=== PATIENT | female | born 1955 | race Caucasian/White ===

== ENCOUNTER 2020-12-29 04:25 | Inpatient (IN) | payer OTHER ==
[2020-12-29] MEDS ORDERED: HEPARIN SODIUM 1,000 UN/ML (10ML VL) IV PRN (05:50)
[2020-12-29] MEDS ORDERED: NALOXONE 0.4 MG/ML 1 ML VIAL IV PRN (05:51)
[2020-12-29] MEDS ORDERED: MORPHINE SULFATE 4 MG/ML SYRINGE IV PRN (05:51)
[2020-12-29] MEDS ORDERED: ACETAMINOPHEN TAB 325 MG TAB PO PRN (05:51)
[2020-12-29] MEDS ORDERED: ALBUTEROL NEBULIZED 2.5 MG/3 ML INHALATION PRN (06:03)
--- NOTE | 2020-12-29 06:03 | ED ---
General Adult HPI - General Chief complaint: Chest Pain Stated complaint: A-Fib, SOB Time Seen by Provider: 12/29/20 04:27 Source: patient, EMS Mode of arrival: EMS - History of Present Illness Initial comments: Patient is 65-year-old woman who arrives here as a transfer from [facility]. The patient states she had gone there this evening to be evaluated for increasing shortness of breath. The patient states that she does have history of asthma. Patient had seen her physician Dr Bolivar, and had been placed on a dose pack which ended the previous day. She stated that she had some initial improvement but then when the dose pack and it she was not feeling well again. When she was evaluated at the other facility she is found to be in atrial fibrillation with rapid ventricular rate. Patient also found to have segmental branch pulmonary embolism with CTA was performed. She was started on IV heparin as well as Cardizem and transferred here for further treatment. When I interview the patient, she states her breathing is doing better than it was. She is not having chest pain. Patient does note bilateral leg edema. -: days(s) Consistency: constant Improves with: none Worsens with: none Associated Symptoms: shortness of breath Treatments Prior to Arrival: none - Related Data Allergies Allergy/AdvReac Type Severity Reaction Status Date / Time No Known Allergies Allergy Verified 12/29/20 06:02 Review of Systems ROS Statement: Those systems with pertinent positive or pertinent negative responses have been documented in the HPI. ROS Other: All systems not noted in ROS Statement are negative. Constitutional: Denies: fever Respiratory: Reports: cough, dyspnea. Denies: wheezes, hemoptysis Cardiovascular: Reports: palpitations, edema. Denies: syncope Gastrointestinal: Denies: abdominal pain, vomiting, diarrhea Genitourinary: Denies: dysuria, hematuria Musculoskeletal: Denies: back pain Skin: Denies: rash Neurological: Denies: headache, weakness Past Medical History Past Medical History: Atrial Fibrillation, Asthma, Rheumatoid Arthritis (RA) Past Surgical History: Cholecystectomy, Hysterectomy, Joint Replacement Past Psychological History: Depression Smoking Status: Former smoker Past Alcohol Use History: Occasional General Exam General appearance: alert, in no apparent distress Head exam: Present: atraumatic, normocephalic Eye exam: Present: normal appearance. Absent: scleral icterus, conjunctival injection Respiratory exam: Present: wheezes, rales (I lateral bases). Absent: respiratory distress, rhonchi, stridor Cardiovascular Exam: Present: regular rate, irregular rhythm, normal heart sounds. Absent: systolic murmur, diastolic murmur, rubs, gallop GI/Abdominal exam: Present: soft. Absent: distended, tenderness, guarding, rebound, rigid, mass Extremities exam: Present: normal capillary refill, pedal edema. Absent: calf tenderness Back exam: Present: normal inspection. Absent: CVA tenderness (R), CVA tenderness (L) Neurological exam: Present: alert Skin exam: Present: warm, dry, intact, erythema, other (There are some chronic stasis changes as well as erythema.). Absent: rash Course Vital Signs 12/29/20 12/29/20 04:28 06:38 Temperature 97.6 F Pulse Rate 79 112 H Respiratory 20 20 Rate Blood Pressure 126/90 124/88 O2 Sat by Pulse 95 95 Oximetry Medical Decision Making - Medical Decision Making Patient is 65-year-old woman transferred here to be treated for acute pulmonary embolism as well as atrial fibrillation with rapid ventricular rate.. The patient is now rate controlled. Heparin continued patient on oral Cardizem for rate control Patient also appears to have cellulitis and started antibiotics here Disposition Clinical Impression: Acute pulmonary embolism, Atrial fibrillation, COPD exacerbation, Cellulitis Disposition: ADMITTED IP TO THIS HOSP Condition: Serious
[2020-12-29] MEDS: HEPARIN SOD,PORK IN 0.45% NACL 25,000 UNIT in 0.45% NACL 1 250ML.BAG IV SCH ×2 (06:34→19:28)
[2020-12-29] MEDS: SODIUM CHLORIDE 0.9% 1,000 ML IV SCH ×2 (06:36→19:47)
[2020-12-29] MEDS ORDERED: NAFCILLIN 2 GM in DEXTROSE 5% IN WATER 100 ML IVPB SCH ×2 (08:00)
[2020-12-29] MEDS: DILTIAZEM ORAL 30 MG TAB PO SCH ×3 (08:07→22:54)
[2020-12-29] MEDS: buPROPion XL 300 MG TAB.ER.24H PO SCH (08:07)
[2020-12-29] MEDS: FAMOTIDINE 20 MG TAB PO SCH ×2 (08:09→19:47)
[2020-12-29] MEDS: LOSARTAN 25 MG TAB PO SCH (08:12)
[2020-12-29] MEDS: MONTELUKAST 10 MG TAB PO SCH (08:12)
[2020-12-29] MEDS: PANTOPRAZOLE 40 MG TABLET PO SCH (08:13)
[2020-12-29] MEDS ORDERED: IPRATROPIUM-ALBUTEROL 3 ML NEB INHALATION PRN (15:52)
[2020-12-29] MEDS ORDERED: ALPRAZolam 0.25 MG TAB PO PRN (15:52)
--- NOTE | 2020-12-29 16:10 | XR ---
EXAMINATION TYPE: XR chest 1V portable DATE OF EXAM: 12/29/2020 COMPARISON: NONE HISTORY: Pneumonia TECHNIQUE: Single view FINDINGS: There is no heart failure nor confluent pneumonic infiltrate. Costophrenic angles are clear . There is some coarsening of interstitial markings. Heart size is fairly normal. There are chest manoj ds. IMPRESSION: Mild increased markings could relate to some prominent fibrosis. Normal heart.
[2020-12-29] MEDS: BUDESONIDE 1 MG/2 ML NEBU INHALATION SCH ×2 (16:35→20:22)
[2020-12-29] MEDS: FORMOTEROL FUMARATE 20 MCG/2 ML NEBU INHALATION SCH ×2 (16:36→20:22)
[2020-12-29] MEDS: IPRATROPIUM-ALBUTEROL 3 ML NEB INHALATION SCH ×2 (16:48→20:22)
--- NOTE | 2020-12-29 17:48 | HP ---
HISTORY AND PHYSICAL DATE OF SERVICE: 12/29/2020. CHIEF COMPLAINTS: Pulmonary embolism. HISTORY OF PRESENT ILLNESS: This 65-year-old woman with a past medical history of multiple medical problems, including history of atrial fibrillation, history of asthma and rheumatoid arthritis, history of hysterectomy, cholecystectomy, being followed by a primary physician in the outpatient setting [facility], was not feeling well. The patient had cough and sputum for the last couple days and the patient is and the patient is concerned about Covid and the patient went to [facility] for Covid testing and CT scan showed some subsegmental pulmonary embolism and the patient was subsequently transferred to [place] for further evaluation and treatment. The patient also had atrial fibrillation with fast ventricular rate. The patient is started on Cardizem. Cardiology evaluation in progress. There is no history of fever, rigors, chills at this time. Covid 19 test was negative, but however, the patient has taken two doses plus the booster rheumatoid arthritis. The patient also had bilateral leg swelling and some skin lesion on the left lower part also. There is no history of fever, rigors. No history of any headache, loss of consciousness or seizures. No history of contact with Covid 19 at this time. PAST MEDICAL HISTORY: History of atrial fibrillation, asthma, rheumatoid arthritis, cholecystectomy, hysterectomy. MEDICATIONS: Prior to admission home medications are: Valtrex, Wellbutrin, demadex, potassium gluconate, Protonix, Bystolic, Singulair, Resvu, Cozaar, Motrin, folic acid, Flovent, Ventolin. Doses reviewed. ALLERGIES: None. FAMILY HISTORY: No history of heart disease or strokes in the family. SOCIAL HISTORY: Previous history of smoking. Otherwise, no history of alcohol intake. REVIEW OF SYSTEMS: ENT: No diminished vision. No diminished hearing. CARDIOVASCULAR: As mentioned earlier. RESPIRATORY: As mentioned earlier. GI: No nausea or vomiting. : No dysuria. NERVOUS SYSTEM: No numbness or weakness. ALLERGY/IMMUNOLOGY: As mentioned earlier. History of asthma. HEMATOLOGY/ONCOLOGY: No history of any anemia. ENDOCRINE: No history of diabetes or hypothyroidism. CONSTITUTIONAL: As mentioned earlier. DERMATOLOGY as mentioned earlier. RHEUMATOLOGY: Rheumatoid arthritis PSYCHIATRIC: As mentioned earlier, depression. PHYSICAL EXAMINATION: Patient is alert, oriented x3. Pulse is 112, irregular, blood pressure 124/80, respiration 20, temperature 97.2, pulse ox 94% on 2 L. HEENT: Conjunctivae normal. Oral mucosa moist. NECK is no JVD. No carotid bruit. No lymph node enlargement. CARDIOVASCULAR: S1, S2 muffled. No S3, no S4. RESPIRATORY: Breath sounds diminished in the bases. Scattered rhonchi and crackles. Expiratory wheezing also present. ABDOMEN: Soft, obese, nontender. No mass palpable. LEGS: No edema, no swelling. NERVOUS SYSTEM: Higher functions as mentioned earlier. Moves all 4 limbs. No focal motor or sensory deficits. LYMPHATICS: No lymph nodes palpable in the neck, axillae, groin. JOINTS: No active deforming arthropathy. SKIN: Some erythema present on the left lower part. LAB: APTT 77, troponin less than 0.012. ASSESSMENT: 1. Acute bronchial asthma, acute exacerbation, acute purulent tracheobronchitis. 2. Acute bilateral pulmonary embolism. 3. History of atrial fibrillation with fast ventricular rate. 4. History of rheumatoid arthritis. 5. History of cholecystectomy. 6. History of hysterectomy. 7. History of depression. 8. Remote history of nicotine dependence. 9. Obesity, body mass of 39.6. 10.FULL CODE. RECOMMENDATIONS AND DISCUSSION: This 65-year-old woman who presented with multiple complex medical issues, we will monitor the patient closely. Continue the current medications, management and symptomatic treatment. Continue with IV heparin. Otherwise, recommend Pulmonary and Hematology/Oncology consultations. Otherwise continue the rest of medications. Home medications. Covid 19 testing was negative, but I would recommend PCR testing also. Otherwise the chest x-ray and continue to monitor. Guarded prognosis because of multiple complex medical issues. Further recommendations to follow. MMODL / IJN: [id number] / ARMANDO
[2020-12-29 19:01] LABS: C Reactive Protein 4.5 mg/dL (<1.0)
[2020-12-29 19:04] LABS: Partial Thromboplastin Time 92.4 sec (22.0-30.0)
[2020-12-29] MEDS ORDERED: DILTIAZEM DRIP BOLUS FROM BAG 1 MG SOLN IV ONE (21:31)
[2020-12-29] MEDS ORDERED: DILTIAZEM 125 MG in SODIUM CHLORIDE 0.9% 100 ML IV SCH (21:45)
[2020-12-30 02:56] LABS: Anisocytosis Slight; Basophils % (A) 0 %; Eosinophils % (A) 0 %; HCT 36.7 % (34.0-46.0); HGB 11.8 gm/dL (11.4-16.0); Lymphocytes # (A) 1.2 k/uL (1.0-4.8); Lymphocytes % (A) 7 %; MCH 32.1 pg (25.0-35.0); MCHC 32.1 g/dL (31.0-37.0); MCV 100.1 fL (80.0-100.0); Macrocytosis Slight; Mean Platelet Volume 10.7; Monocytes # (A) 1.1 k/uL (0-1.0); Monocytes % (A) 6 %; Neutrophils # (A) 15.3 k/uL (1.3-7.7); Neutrophils % (A) 86 %; Platelet Count 211 k/uL (150-450); RBC 3.66 m/uL (3.80-5.40); RDW 16.6 % (11.5-15.5); WBC 17.8 k/uL (3.8-10.6)
[2020-12-30 03:37] LABS: Potassium 4.3 mmol/L (3.5-5.1)
[2020-12-30] MEDS: SODIUM CHLORIDE 0.9% 1,000 ML IV SCH ×2 (05:40→22:55)
[2020-12-30] MEDS: HEPARIN SOD,PORK IN 0.45% NACL 25,000 UNIT in 0.45% NACL 1 250ML.BAG IV SCH ×2 (05:40→22:55)
[2020-12-30] MEDS: IPRATROPIUM-ALBUTEROL 3 ML NEB INHALATION SCH ×4 (07:25→21:01)
[2020-12-30] MEDS: BUDESONIDE 1 MG/2 ML NEBU INHALATION SCH ×2 (07:25→21:01)
[2020-12-30] MEDS: FORMOTEROL FUMARATE 20 MCG/2 ML NEBU INHALATION SCH ×2 (07:25→21:01)
[2020-12-30] MEDS ORDERED: PANTOPRAZOLE 40 MG TABLET PO SCH (07:30)
[2020-12-30] MEDS: LOSARTAN 25 MG TAB PO SCH (08:31)
[2020-12-30] MEDS: FAMOTIDINE 20 MG TAB PO SCH ×2 (08:31→19:40)
[2020-12-30] MEDS: FOLIC ACID 1 MG TAB PO SCH (08:31)
[2020-12-30] MEDS: PANTOPRAZOLE 40 MG TABLET PO SCH (08:31)
[2020-12-30] MEDS: POTASSIUM CHLORIDE ER 10 MEQ TAB.ER.PRT PO SCH (08:31)
[2020-12-30] MEDS: MONTELUKAST 10 MG TAB PO SCH (08:31)
[2020-12-30] MEDS: DILTIAZEM ORAL 30 MG TAB PO SCH ×3 (08:31→22:56)
[2020-12-30] MEDS: valACYclovir HCL 1,000 MG TABLET PO SCH (08:32)
[2020-12-30] MEDS: TORSEMIDE 20 MG TAB PO SCH (08:32)
[2020-12-30] MEDS: buPROPion XL 300 MG TAB.ER.24H PO SCH (08:32)
[2020-12-30] MEDS ORDERED: METOPROLOL TARTRATE 25 MG TAB PO SCH (09:00)
[2020-12-30] MEDS ORDERED: NEBIVOLOL 5 MG TAB PO SCH (09:00)
--- NOTE | 2020-12-30 09:32 | ECHOF ---
Referral Reason:afib MEASUREMENTS -------- HEIGHT: 170.2 cm WEIGHT: 118.4 kg BP: RVIDd: 2.1 cm (< 3.3) IVSd: 1.0 cm (0.6 - 1.1) LVIDd: 3.4 cm (3.9 - 5.3) LVPWd: 1.1 cm (0.6 - 1.1) IVSs: 1.5 cm LVIDs: 2.0 cm LVPWs: 1.7 cm LAESV Index (A-L): 21.98 ml/m Ao Diam: 3.1 cm (2.0 - 3.7) AV Cusp: 1.8 cm (1.5 - 2.6) LA Diam: 2.1 cm (2.7 - 3.8) RAP: 15.00 mmHg RVSP: 37.72 mmHg FINDINGS -------- Atrial fibrillation. This was a technically adequate study. The left ventricular size is normal. Left ventricular wall thickness is normal. Overall left vent ricular systolic function is normal with, an EF between 55 - 60 %. Left ventricular fillimg pressur e cannot be estimated due to Atrial fibrillation. The right ventricle is normal in size. The right ventricular systolic function is normal. The left atrial size is normal. Normal LA size by volume 22+/-6 ml/m2. The right atrial size is normal. The aortic valve was not well visualized. The mitral valve is normal. Mild mitral regurgitation is present. The tricuspid valve appears structurally normal. Mild tricuspid regurgitation present. There is m ild pulmonary hypertension. The right ventricular systolic pressure, as measured by Doppler, is 37. 72mmHg. There is no pulmonic regurgitation present. The aortic root size is normal. The inferior vena cava is mildly dilated. There is no pericardial effusion. CONCLUSIONS -------- 1. The left ventricular size is normal. 2. Left ventricular wall thickness is normal. 3. Overall left ventricular systolic function is normal with, an EF between 55 - 60 %. 4. Left ventricular fillimg pressure cannot be estimated due to Atrial fibrillation. 5. Mild mitral regurgitation is present. 6. Mild tricuspid regurgitation present. 7. There is mild pulmonary hypertension. 8. The right ventricular systolic pressure, as measured by Doppler, is 37.72mmHg. 9. The inferior vena cava is mildly dilated. 10. There is no pericardial effusion. HAND STEMMER: Shae Rashid RDCS
[2020-12-30] MEDS ORDERED: DILTIAZEM 125 MG in SODIUM CHLORIDE 0.9% 100 ML IV SCH (10:00)
--- NOTE | 2020-12-30 10:31 | P.CRDCN ---
History of Present Illness History of present illness: HISTORY OF PRESENTING ILLNESS This is a pleasant 65-year-old female past medical history significant for hypertension, Asthma, atrial fibrillation, rheumatoid arthritis, former tobacco use. She follows with Dr. Dia. We have been asked to see in consultation for atrial fibrillation with rapid ventricular response. Patient transferred from [place]. She presented to the hospital initially for increasing shortness of breath and cough. She was found to be in atrial fibrillation with rapid ventricular rate. Patient also found to have right segmental branch pulmonary embolism with CTA was performed at [facility] per report. She was started on IV heparin as well as Cardizem and transferred to [facility] for further treatment. Patient seen and examined at bedside, she continues to have some shortness of breath. She denies any chest pain, palpitations, syncope or p resyncope, denies any symptoms of orthopnea PND. She denies any cough, fever, chills. She denies current tobacco use, denies daily alcohol use. She denies history of CAD, Diabetes, heart failure, SD, or STroke. DIAGNOSTICS EKG reveals atrial fibrillation heart rate 95 Telemetry tracings indicate atrial fibrillation, heart rate uncontrolled trends [id number] Chest xray mild increased markings could relate to some prominent fibrosis. Laboratory reviewed, WBC 17.8, Hgb 11.8, Plt 211, D dimer 1.14, Sodium 140, K 4.3, BUN 15, sCr 0.88, LDH 648, Troponin negative x 1, CRP 4.5. Current home medications include Valtrex, Wellbutrin, Torsemide 20mg daily, Protonix, Singulair, Methotrexate, Losartan 25mg daily, Flovent, Albuterol Echocardiogram revealed EF 55-60%, mild mitral regurgitation, mild tricuspid regurgitation, mild pulmonary hypertension with RVSP of 37 mmHg REVIEW OF SYSTEMS At the time of my exam: CONSTITUTIONAL: Denies fever or chills. CARDIOVASCULAR: +shortness of breath. Denies chest pain, orthopnea, PND or palpitations. RESPIRATORY: + cough. GASTROINTESTINAL: Denies abdominal pain, diarrhea, constipation, nausea or vomiting. MUSCULOSKELETAL: Denies myalgias. NEUROLOGIC: Denies numbness, tingling, headacbe or weakness. ENDOCRINE: Denies fatigue, weight change, polydipsia or polyurina. GENITOURINARY: Denies burning, hematuria or urgency with micturation. HEMATOLOGIC: Denies history of anemia or bleeding. PHYSICAL EXAMINATION Vitals BP 120/74, HR 116, afebrile, SpO2 96% on 2 L nasal cannula. CONSTITUTIONAL: No apparent distress. HEENT: Head is normocephalic. Pupils are equal, round. Sclerae anicteric. Mucous membranes of the mouth are moist. No JVD. No carotid bruit. CHEST EXAMINATION: Lungs are clear to auscultation. No chest wall tenderness is noted on palpation or with deep breathing. HEART EXAMINATION: Irregular tachycardic rate and rhythm. S1, S2 heard. No murmurs, gallops or rub. ABDOMEN: Soft, nontender. Positive bowel sounds. EXTREMITIES: 2+ peripheral pulses, no lower extremity edema and no calf tenderness. SKIN: warm, dry NEUROLOGIC EXAMINATION: Patient is awake, alert and oriented x3. ASSESSMENT Acute Pulmonary Embolism Paroxysmal Atrial fibrillation with rapid ventricular response -[id number] score 2 History of hypertension Asthma Rheumatoid Arthritis Former smoker PLAN Stop Nebivolol Increase metoprolol 50mg BID Continue 5mg/hr IV Cardizem, wean as tolerated to PO Cardizem 30mg Q8hr Continue IV heparin at this time. Per casemanagement patient has Medicaid and Eliquis or Xarelto will be covered for the pat ient Continue Losartan Further recommendations based on clinical course Nurse Practitioner note has been reviewed, I agree with a documented findings and plan of care. Patient was seen and examined. Past Medical History Past Medical History: Atrial Fibrillation, Asthma, Rheumatoid Arthritis (RA) History of Any Multi-Drug Resistant Organisms: None Reported Past Surgical History: Cholecystectomy, Hysterectomy, Joint Replacement Past Anesthesia/Blood Transfusion Reactions: No Reported Reaction Past Psychological History: Depression Smoking Status: Former smoker Past Alcohol Use History: Occasional Medications and Allergies Home Medications Medication Instructions Recorded Confirmed Type Albuterol Inhaler [Ventolin Hfa 1 puff INHALATION RT-QID PRN 12/29/20 12/29/20 History Inhaler] Fluticasone Propionate [Flovent 2 puff INHALATION RT-BID 12/29/20 12/29/20 History Hfa 220 mcg] Folic Acid 1 mg PO DAILY 12/29/20 12/29/20 History Ibuprofen [Motrin Ib] 400 - 800 mg PO Q8H PRN 12/29/20 12/29/20 History Losartan Potassium [Cozaar] 25 mg PO DAILY 12/29/20 12/29/20 History Methotrexate/Pf [Rasuvo 25 mg/0.5 25 mg SQ DAVIS 12/29/20 12/29/20 History ml Autoinj] Montelukast [Singulair] 10 mg PO DAILY 12/29/20 12/29/20 History Nebivolol HCl [Bystolic] 10 mg PO DAILY 12/29/20 12/29/20 History Pantoprazole Sodium [Protonix] 20 mg PO DAILY 12/29/20 12/29/20 History Potassium Gluconate [Potassium 99 mg PO DAILY 12/29/20 12/29/20 History Gluconate ER] Torsemide [Demadex] 20 mg PO DAILY 12/29/20 12/29/20 History Upadacitinib [Rinvoq] 15 mg PO HS 12/29/20 12/29/20 History buPROPion HCL [Wellbutrin XL] 300 mg PO DAILY 12/29/20 12/29/20 History valACYclovir HCL [Valtrex] 1,000 mg PO DAILY 12/29/20 12/29/20 History Allergies Allergy/AdvReac Type Severity Reaction Status Date / Time No Known Allergies Allergy Verified 12/29/20 07:44 Physical Exam Vitals: Vital Signs Temp Pulse Pulse Resp BP BP Pulse Ox 12/30/20 03:58 97.6 F 116 H 18 120/74 96 12/30/20 00:00 97.6 F 124 H 20 137/84 97 12/29/20 20:44 88 12/29/20 20:31 90 12/29/20 20:23 90 12/29/20 20:00 97.6 F 77 20 129/68 99 12/29/20 17:04 92 12/29/20 16:54 98 12/29/20 16:52 96 12/29/20 16:00 98.1 F 111 H 18 138/106 95 12/29/20 14:16 100 18 123/94 97 12/29/20 11:25 98 18 140/104 98 Intake and Output 12/29/20 12/30/20 12/30/20 22:59 06:59 14:59 Intake Total 334.495 Balance 334.495 Intake: Intake, IV Titration 94.495 Amount Heparin Sod,Pork in 0.45% 94.495 NaCl 25,000 unit In 0.45 % NaCl 1 250ml.bag @ 18 UNITS/KG/HR 20.412 mls/hr IV .[id number] [facility] Rx#: [id number] Oral 240 Other: Voiding Method Toilet Toilet # Voids 1 1 Weight 118.8 kg Results 12/30/20 02:40 12/30/20 02:40 Cardiac Enzymes 12/29/20 12/29/20 Range/Units 06:51 18:31 Lactate Dehydrogenase 648 H (313-618) U/L Troponin I <0.012 (0.000-0.034) ng/mL Coagulation 12/29/20 12/29/20 12/30/20 Range/Units 11:53 18:31 02:40 APTT 77.0 H 92.4 H 60.5 H (22.0-30.0) sec CBC 12/30/20 Range/Units 02:40 WBC 17.8 H (3.8-10.6) k/uL RBC 3.66 L (3.80-5.40) m/uL Hgb 11.8 (11.4-16.0) gm/dL Hct 36.7 (34.0-46.0) % Plt Count 211 (150-450) k/uL Comprehensive Metabolic Panel 12/30/20 Range/Units 02:40 Sodium 140 (137-145) mmol/L Potassium 4.3 (3.5-5.1) mmol/L Chloride 108 H (98-107) mmol/L Carbon Dioxide 23 (22-30) mmol/L BUN 15 (7-17) mg/dL Creatinine 0.88 (0.52-1.04) mg/dL Glucose 185 H (74-99) mg/dL Calcium 9.0 (8.4-10.2) mg/dL Current Medications Generic Name Dose Route Start Last Admin Trade Name Freq PRN Reason Stop Dose Admin Acetaminophen 650 mg 12/29/20 05:51 Acetaminophen Tab 325 Mg Tab PO Q6HR PRN Mild Pain or Fever > 100.5 Albuterol/Ipratropium 3 ml 12/29/20 16:00 12/29/20 20:22 Ipratropium-Albuterol 3 Ml Neb INHALATION 3 ml RT-QID ELYSE Administration Albuterol/Ipratropium 3 ml 12/29/20 15:52 Ipratropium-Albuterol 3 Ml Neb INHALATION RT-QID PRN Shortness Of Breath Or Wheezing Alprazolam 0.25 mg 12/29/20 15:52 Alprazolam 0.25 Mg Tab PO TID PRN Anxiety Budesonide 1 mg 12/29/20 16:00 12/29/20 20:22 Budesonide 1 Mg/2 Ml Nebu INHALATION 1 mg RT-BID ELYSE Administration Bupropion HCl 300 mg 12/29/20 09:00 12/29/20 08:07 Bupropion Xl 300 Mg Tab.Er.24h PO 300 mg DAILY ELYSE Administration Diltiazem HCl 30 mg 12/29/20 08:00 12/29/20 22:54 Diltiazem Oral 30 Mg Tab PO Not Given Q8HR ELYSE Famotidine 20 mg 12/29/20 09:00 12/29/20 19:47 Famotidine 20 Mg Tab PO 20 mg BID ELYSE Administration Folic Acid 1 mg 12/30/20 09:00 Folic Acid 1 Mg Tab PO DAILY ELYSE Formoterol Fumarate 20 mcg 12/29/20 16:00 12/29/20 20:22 Formoterol Fumarate 20 Mcg/2 Ml Nebu INHALATION 20 mcg RT-BID ELYSE Administration Heparin Sodium (Porcine) 0 unit 12/29/20 05:50 Heparin Sodium 1,000 Un/Ml (10ml Vl) IV PER PROTOCOL PRN Low PTT Protocol Heparin Sodium/Sodium Chloride 250 mls @ 20.412 mls/hr 12/29/20 06:00 12/30/20 05:40 25,000 unit/ Sodium Chloride IV Not Given .[id number] ELYSE Protocol 18 UNITS/KG/HR Sodium Chloride 1,000 mls @ 75 mls/hr 12/29/20 06:00 12/30/20 05:40 Saline 0.9% IV 75 mls/hr .[id number] ELYSE Administration Ceftriaxone Sodium 1 gm/ 50 mls @ 100 mls/hr 12/29/20 16:00 12/29/20 16:44 Sodium Chloride IVPB 100 mls/hr Q24H ELYSE Administration Diltiazem HCl 125 mg/ Sodium 125 mls @ 5 mls/hr 12/29/20 21:45 12/29/20 21:59 Chloride IV 5 mg/hr .Q24H ELYSE 5 mls/hr Administration 5 MG/HR Losartan Potassium 25 mg 12/29/20 09:00 12/29/20 08:12 Losartan 25 Mg Tab PO 25 mg DAILY ELYSE Administration Metoprolol Tartrate 25 mg 12/30/20 09:00 Metoprolol Tartrate 25 Mg Tab PO BID ELYSE Montelukast Sodium 10 mg 12/29/20 09:00 12/29/20 08:12 Montelukast 10 Mg Tab PO 10 mg DAILY ELYSE Administration Morphine Sulfate 4 mg 12/29/20 05:51 Morphine Sulfate 4 Mg/Ml Syringe IV Q4HR PRN Severe Pain Naloxone HCl 0.2 mg 12/29/20 05:51 Naloxone 0.4 Mg/Ml 1 Ml Vial IV Q2M PRN Opioid Reversal Nebivolol 10 mg 12/30/20 09:00 Nebivolol 5 Mg Tab PO DAILY ELYSE Pantoprazole Sodium 40 mg 12/29/20 09:00 12/29/20 08:13 Pantoprazole 40 Mg Tablet PO 40 mg DAILY ELYSE Administration Potassium Chloride 10 meq 12/30/20 09:00 Potassium Chloride Er 10 Meq Tab.Er.Prt PO DAILY ELYSE Torsemide 20 mg 12/30/20 09:00 Torsemide 20 Mg Tab PO DAILY ELYSE Valacyclovir HCl 1,000 mg 12/30/20 09:00 Valacyclovir Hcl 1,000 Mg Tablet PO DAILY [facility] Intake and Output 12/29/20 12/30/20 12/30/20 22:59 06:59 14:59 Intake Total 334.495 Balance 334.495 Intake: Intake, IV Titration 94.495 Amount Heparin Sod,Pork in 0.45% 94.495 NaCl 25,000 unit In 0.45 % NaCl 1 250ml.bag @ 18 UNITS/KG/HR 20.412 mls/hr IV .[id number] [facility] Rx#: [id number] Oral 240 Other: Voiding Method Toilet Toilet # Voids 1 1 Weight 118.8 kg 12/30/20 02:40 12/30/20 02:40
[2020-12-30] MEDS: METOPROLOL TARTRATE 50 MG TAB PO SCH ×2 (11:51→19:40)
--- NOTE | 2020-12-30 16:28 | US ---
EXAMINATION TYPE: US venous doppler duplex LE DATE OF EXAM: 12/30/2020 4:19 PM COMPARISON: NONE CLINICAL HISTORY: dvt. PE, on IV heparin, on bilateral leg swelling SIDE PERFORMED: Bilateral TECHNIQUE: The lower extremity deep venous system is examined utilizing real time linear array sonog anna marie with graded compression, doppler sonography and color-flow sonography. VESSELS IMAGED: Common Femoral Vein Deep Femoral Vein Greater Saphenous Vein * Femoral Vein Popliteal Vein Small Saphenous Vein * Proximal Calf Veins- not well seen bilaterally (* superficial vessels) Right Leg: Negative for DVT Left Leg: Negative for DVT Grayscale, color doppler, spectral doppler imaging performed of the deep veins of the bilateral lower extremities. There is normal flow, compressibility, vascular waveforms. IMPRESSION: No ultrasound evidence for acute DVT in either lower extremity.
--- NOTE | 2020-12-30 17:21 | PN ---
PROGRESS NOTE DATE OF SERVICE: 12/30/2020 This 65-year-old woman was admitted with suspicious acute pulmonary embolism also had acute purulent bronchial asthma exacerbation, purulent tracheobronchitis also. No chest pain. No palpitations. No fever. Multiple consultants following the patient closely. PHYSICAL EXAMINATION: Alert and oriented times three. Pulse is 86, blood pressure 121/81, respirations 16, temperature 98.4, pulse ox 98% on room air. HEENT: Conjunctivae normal. Neck: No JVD. Cardiovascular: S1, S2. Respiratory System: Breath sounds diminished at the bases. A few scattered rhonchi and crackles. Abdomen: Soft, nontender. Nervous System: No focal deficits. LABS: WBC 7.3, hemoglobin 7.8. Other labs are noted. C-reactive protein is 4.5. D-dimer is 1.14. ASSESSMENT: 1. Acute bronchial asthma, acute exacerbation, acute purulent tracheobronchitis. 2. Acute bilateral pulmonary embolism. 3. History of atrial fibrillation. Fast ventricular rate. 4. History of elevated D-dimer. 5. History of rheumatoid arthritis. 6. History of cholecystectomy. 7. History of hysterectomy. 8. History of depression. 9. Remote history of nicotine dependence. 10.Obesity with body mass of 39.6. 11.FULL CODE. RECOMMENDATIONS AND DISCUSSION: I recommend to continue current medications. Continue with heparin and continue anticoagulants. Closely follow. Guarded prognosis. Continue with bronchodilators. Empiric antibiotics. Guarded prognosis. Further recommendations to follow. Lila per Cardiology for atrial fibrillation. MMODL / IJN: [id number] /
--- NOTE | 2020-12-30 17:43 | P.CNPUL ---
History of Present Illness Consult date: 12/30/20 Reason for consult: dyspnea, cough, pulmonary embolism Chief complaint: Shortness of breath History of present illness: Patient is a pleasant 65-year-old female patient was initially seen at [facility] for progressive shortness of breath of several day duration, she has a prior history of asthma and asthmatic bronchitis has been getting therapy for acute exacerbation of asthma with Medrol Dosepak, patient did not respond very well with the Dosepak decided to come into the hospital, patient was found to be in A. fib with rapid ventricular response, CTA was positive for pulmonary embolism patient was started on Cardizem as well as heparin transferred over here for further evaluation and intervention and therapy, the specific questioning she denies any loss of consciousness, does have ongoing cough sh ortness of breath, cough is nonproductive, denies any chest pain, denies any bowel or bladder related problem, her x-ray in the hospital prominent markings have been seen, echocardiogram significant for atrial fibrillation ejection fraction normal 60%, mild degree of pulmonary hypertension noted, duplex ultrasound lower extremity negative for DVT bilaterally, patient currently is being treated with bronchodilator and continuation of home respirator therapy, IV Rocephin, Cardizem is being switched to oral from IV, heparin drip as per protocol along with continuation of home medication, patient noted to be very short of breath on minimal activity and exertion coming back from washroom has been huffing and puffing Review of Systems All systems: negative Past Medical History Past Medical History: Atrial Fibrillation, Asthma, Rheumatoid Arthritis (RA) History of Any Multi-Drug Resistant Organisms: None Reported Past Surgical History: Cholecystectomy, Hysterectomy, Joint Replacement Past Anesthesia/Blood Transfusion Reactions: No Reported Reaction Past Psychological History: Depression Smoking Status: Former smoker Past Alcohol Use History: Occasional Medications and Allergies Home Medications Medication Instructions Recorded Confirmed Type Albuterol Inhaler [Ventolin Hfa 1 puff INHALATION RT-QID PRN 12/29/20 12/29/20 History Inhaler] Fluticasone Propionate [Flovent 2 puff INHALATION RT-BID 12/29/20 12/29/20 History Hfa 220 mcg] Folic Acid 1 mg PO DAILY 12/29/20 12/29/20 History Ibuprofen [Motrin Ib] 400 - 800 mg PO Q8H PRN 12/29/20 12/29/20 History Losartan Potassium [Cozaar] 25 mg PO DAILY 12/29/20 12/29/20 History Methotrexate/Pf [Rasuvo 25 mg/0.5 25 mg SQ DAVIS 12/29/20 12/29/20 History ml Autoinj] Montelukast [Singulair] 10 mg PO DAILY 12/29/20 12/29/20 History Nebivolol HCl [Bystolic] 10 mg PO DAILY 12/29/20 12/29/20 History Pantoprazole Sodium [Protonix] 20 mg PO DAILY 12/29/20 12/29/20 History Potassium Gluconate [Potassium 99 mg PO DAILY 12/29/20 12/29/20 History Gluconate ER] Torsemide [Demadex] 20 mg PO DAILY 12/29/20 12/29/20 History Upadacitinib [Rinvoq] 15 mg PO HS 12/29/20 12/29/20 History buPROPion HCL [Wellbutrin XL] 300 mg PO DAILY 12/29/20 12/29/20 History valACYclovir HCL [Valtrex] 1,000 mg PO DAILY 12/29/20 12/29/20 History Allergies Allergy/AdvReac Type Severity Reaction Status Date / Time No Known Allergies Allergy Verified 12/29/20 07:44 Physical Exam Vitals: Vital Signs Temp Pulse Pulse Resp BP Pulse Ox 12/30/20 15:24 90 12/30/20 15:14 88 12/30/20 15:10 98.4 F 86 16 121/81 12/30/20 11:54 94 16 122/79 98 12/30/20 11:13 91 12/30/20 11:04 90 12/30/20 08:00 97.5 F L 114 H 16 129/80 98 12/30/20 07:47 92 12/30/20 07:39 90 12/30/20 07:38 90 12/30/20 07:25 91 12/30/20 03:58 97.6 F 116 H 18 120/74 96 12/30/20 00:00 97.6 F 124 H 20 137/84 97 12/29/20 20:44 88 12/29/20 20:31 90 12/29/20 20:23 90 12/29/20 20:00 97.6 F 77 20 129/68 99 Intake and Output 12/30/20 12/30/20 12/30/20 06:59 14:59 22:59 Other: Voiding Method Toilet Toilet # Voids 1 2 Weight 118.8 kg - Constitutional General appearance: disheveled, mild distress, morbidly obese - EENT Eyes: EOMI, PERRLA ENT: normal oropharynx Ears: bilateral: normal - Neck Neck: normal ROM Carotids: bilateral: upstroke normal Thyroid: bilateral: normal size - Respiratory Respiratory: bilateral: diminished, prolonged expiration - Cardiovascular Heart sounds: normal: S1, S2 - Gastrointestinal General gastrointestinal: distended, normal bowel sounds, soft - Integumentary Integumentary: normal turgor - Neurologic Neurologic: CNII-XII intact - Musculoskeletal Musculoskeletal: gait normal, generalized weakness, strength equal bilaterally - Psychiatric Psychiatric: A&O x's 3, appropriate affect, intact judgment & insight Results - Laboratory Findings CBC and BMP: 12/30/20 02:40 12/30/20 02:40 PT/INR, D-dimer D-Dimer 1.14 mg/L FEU (<0.60) H 12/29/20 18:31 Abnormal lab findings: Abnormal Labs 12/29/20 12/29/20 12/29/20 11:53 18:31 18:31 WBC RBC MCV RDW Neutrophils # Monocytes # APTT 77.0 H 92.4 H D-Dimer 1.14 H Chloride Glucose Lactate Dehydrogenase 648 H C-Reactive Protein 4.5 H 12/30/20 12/30/20 12/30/20 02:40 02:40 02:40 WBC 17.8 H RBC 3.66 L MCV 100.1 H RDW 16.6 H Neutrophils # 15.3 H Monocytes # 1.1 H APTT 60.5 H D-Dimer Chloride 108 H Glucose 185 H Lactate Dehydrogenase C-Reactive Protein 12/30/20 09:45 WBC RBC MCV RDW Neutrophils # Monocytes # APTT 52.1 H D-Dimer Chloride Glucose Lactate Dehydrogenase C-Reactive Protein - Diagnostic Findings Chest x-ray: report reviewed, image reviewed (Finding as noted above) Assessment and Plan Assessment: Acute pulmonary embolism Acute hypoxic respiratory failure Atrial fibrillation with rapid ventricular response likely due to pulmonary embolism Mild pulmonary hypertension COPD Purulent tracheobronchitis Severe morbid obesity History of asthma Rheumatoid arthritis History of smoking cigarettes in the past Plan: Continue IV heparin however in next 24 hours can be switched to oral direct anticoagulants Continue antibiotics Continue breathing treatment Add IV steroids Further plan of care as per clinical response of the patient Time with Patient: Greater than 30
[2020-12-30] MEDS: methylPREDNISolone SOD SUCCI 40 MG/ML 1 ML VIAL IV SCH (19:41)
[2020-12-30] MEDS: INSULIN ASPART (NovoLOG) 100 UNIT/ML VIAL SQ SCH (22:14)
[2020-12-31 05:50] LABS: Glucose,Whole Blood 202 mg/dL (75-99)
[2020-12-31] MEDS: INSULIN ASPART (NovoLOG) 100 UNIT/ML VIAL SQ SCH ×4 (06:10→20:40)
[2020-12-31 07:44] LABS: Anisocytosis Slight; Basophils % (A) 0 %; Eosinophils % (A) 0 %; HCT 36.7 % (34.0-46.0); HGB 11.5 gm/dL (11.4-16.0); Lymphocytes # (A) 0.4 k/uL (1.0-4.8); Lymphocytes % (A) 4 %; MCH 31.7 pg (25.0-35.0); MCHC 31.4 g/dL (31.0-37.0); MCV 100.9 fL (80.0-100.0); Macrocytosis Slight; Mean Platelet Volume 10.8; Monocytes # (A) 0.2 k/uL (0-1.0); Monocytes % (A) 2 %; Neutrophils # (A) 9.9 k/uL (1.3-7.7); Neutrophils % (A) 93 %; Platelet Count 171 k/uL (150-450); RBC 3.63 m/uL (3.80-5.40); RDW 16.6 % (11.5-15.5); WBC 10.6 k/uL (3.8-10.6)
[2020-12-31] MEDS: BUDESONIDE 1 MG/2 ML NEBU INHALATION SCH ×2 (08:26→21:10)
[2020-12-31] MEDS: IPRATROPIUM-ALBUTEROL 3 ML NEB INHALATION SCH ×4 (08:27→21:10)
[2020-12-31] MEDS: FORMOTEROL FUMARATE 20 MCG/2 ML NEBU INHALATION SCH ×2 (08:27→21:10)
[2020-12-31 08:30] LABS: Calcium 8.5 mg/dL (8.4-10.2)
[2020-12-31] MEDS: HEPARIN SOD,PORK IN 0.45% NACL 25,000 UNIT in 0.45% NACL 1 250ML.BAG IV SCH (09:10)
[2020-12-31] MEDS: POTASSIUM CHLORIDE ER 10 MEQ TAB.ER.PRT PO SCH (09:17)
[2020-12-31] MEDS: DILTIAZEM ORAL 30 MG TAB PO SCH (09:17)
[2020-12-31] MEDS: METOPROLOL TARTRATE 50 MG TAB PO SCH ×2 (09:17→20:41)
[2020-12-31] MEDS: FAMOTIDINE 20 MG TAB PO SCH ×2 (09:17→20:41)
[2020-12-31] MEDS: PANTOPRAZOLE 40 MG TABLET PO SCH (09:17)
[2020-12-31] MEDS: LOSARTAN 25 MG TAB PO SCH (09:17)
[2020-12-31] MEDS: buPROPion XL 300 MG TAB.ER.24H PO SCH (09:18)
[2020-12-31] MEDS: valACYclovir HCL 1,000 MG TABLET PO SCH (09:18)
[2020-12-31] MEDS: TORSEMIDE 20 MG TAB PO SCH (09:18)
[2020-12-31] MEDS: methylPREDNISolone SOD SUCCI 40 MG/ML 1 ML VIAL IV SCH ×2 (09:18→20:40)
[2020-12-31] MEDS: FOLIC ACID 1 MG TAB PO SCH (09:18)
[2020-12-31] MEDS: MONTELUKAST 10 MG TAB PO SCH (09:18)
[2020-12-31] MEDS: SODIUM CHLORIDE 0.9% 1,000 ML IV SCH (09:19)
[2020-12-31] MEDS: DILTIAZEM CD 180 MG CAP.ER.24H PO SCH (11:20)
[2020-12-31 11:51] LABS: Glucose,Whole Blood 169 mg/dL (75-99)
--- NOTE | 2020-12-31 12:09 | P.PN ---
Subjective This is a pleasant 65-year-old female past medical history significant for hypertension, Asthma, atrial fibrillation, rheumatoid arthritis, former tobacco use. She follows with Dr. Dia. We have been asked to see in consultation for atrial fibrillation with rapid ventricular response. Patient transferred from [place]. She presented to the hospital initially for increasing shortness of breath and cough. She was found to be in atrial fibrillation with rapid ventricular rate. Patient also found to have right segmental branch pulmonary embolism with CTA was performed at [facility] per report. She was started on IV heparin as well as Cardizem and transferred to [facility] for further treatment. Patient seen and examined at bedside, she continues to have some shortness of breath. She denies any chest pain, palpitations, syncope or presyncope, denies any symptoms of orthopnea PND. She denies any cough, fever, chills. She denies current tobacco use, denies daily alcohol use. She denies history of CAD, Diabetes, heart failure, [place], or STroke. DIAGNOSTICS EKG reveals atrial fibrillation heart rate 95 Current home medications include Valtrex, Wellbutrin, Torsemide 20mg daily, Protonix, Singulair, Methotrexate, Losartan 25mg daily, Flovent, Albuterol Echocardiogram revealed EF 55-60%, mild mitral regurgitation, mild tricuspid regurgitation, mild pulmonary hypertension with RVSP of 37 mmHg 12/31/20: Patient seen and examined at bedside, She has no chest pain or shortness of breath. Telemetry tracings indicate atrial fibrillation, heart rate uncontrolled trends 90s-115. Blood pressure 153/94, heart rate 112, afebrile, maintaining oxygen saturations on room air. She is currently maintained on IV heparin, metoprolol tartrate 50 mg twice a day, Cardizem 30 mg every 8 hours. Labs reviewed, WBC 10.6, hemoglobin 11.5, platelets 171, sodium 138, potassium 4.0, BUN 19, serum creatinine 0.9. PHYSICAL EXAMINATION CONSTITUTIONAL: No apparent distress. HEENT: Neck Supple. No JVD CHEST EXAMINATION: Lungs bilateral wheezing to auscultation. HEART EXAMINATION: Irregular tachycardic rate and rhythm. S1, S2 heard. No murmurs, gallops or rub. ABDOMEN: Soft, nontender. Positive bowel sounds. EXTREMITIES: 2+ peripheral pulses, no lower extremity edema and no calf tenderness. SKIN: warm, dry NEUROLOGIC EXAMINATION: Patient is awake, alert and oriented x3. ASSESSMENT Acute Pulmonary Embolism Paroxysmal Atrial fibrillation with rapid ventricular response -[id number] score 2 History of hypertension Asthma Rheumatoid Arthritis Former smoker PLAN Discontinue Cardizem 30mg Q8hr and transition to Cardizem 180mg Daily Continue metoprolol tartrate 50mg BID Continue IV heparin, Anticoagulation for PE per primary, patient will need detention anticoagulation for her atrial fibrillation Per case management patient has Medicaid and Eliquis or Xarelto will be covered for the patient Continue Losartan Further recommendations based on clinical course Nurse Practitioner note has been reviewed, I agree with a documented findings and plan of care. Patient was seen and examined. Objective - Vital Signs Vital signs: Vital Signs Temp 97.2 F L 12/31/20 11:22 Pulse 90 12/31/20 11:22 Resp 18 12/31/20 11:22 BP 148/101 12/31/20 11:22 Pulse Ox 95 12/31/20 11:22 Intake & Output 12/30/20 12/31/20 12/31/20 18:59 06:59 18:59 Intake Total 249.693 481.917 Balance 249.693 481.917 Weight 117.7 kg Intake: IV 10 Invasive Line 1 10 Intake, IV Titration 249.693 231.917 Amount Diltiazem 125 mg In 125 Sodium Chloride 0.9% 100 ml @ 5 MG/HR 5 mls/hr IV .Q24H [facility] Rx#:[id number] Diltiazem 125 mg In 106.917 Sodium Chloride 0.9% 100 ml @ 5 MG/HR 5 mls/hr IV .Q24H [facility] Rx#:[id number] Heparin Sod,Pork in 0.45% 249.693 NaCl 25,000 unit In 0.45 % NaCl 1 250ml.bag @ 18 UNITS/KG/HR 20.412 mls/hr IV .[id number] [facility] Rx#: [id number] Oral 240 Other: Voiding Method Toilet Toilet # Voids 2 2 - Labs CBC & Chem 7: 12/31/20 06:41 12/31/20 06:41 Labs: Abnormal Lab Results - Last 24 Hours (Table) 12/31/20 12/31/20 12/31/20 Range/Units 05:48 06:41 06:41 RBC 3.63 L (3.80-5.40) m/uL MCV 100.9 H (80.0-100.0) fL RDW 16.6 H (11.5-15.5) % Neutrophils # 9.9 H (1.3-7.7) k/uL Lymphocytes # 0.4 L (1.0-4.8) k/uL APTT (22.0-30.0) sec BUN 19 H (7-17) mg/dL Glucose 219 H (74-99) mg/dL POC Glucose (mg/dL) 202 H (75-99) mg/dL 12/31/20 12/31/20 Range/Units 06:41 11:47 RBC (3.80-5.40) m/uL MCV (80.0-100.0) fL RDW (11.5-15.5) % Neutrophils # (1.3-7.7) k/uL Lymphocytes # (1.0-4.8) k/uL APTT 67.4 H (22.0-30.0) sec BUN (7-17) mg/dL Glucose (74-99) mg/dL POC Glucose (mg/dL) 169 H (75-99) mg/dL Microbiology - Last 24 Hours (Table) 12/29/20 18:31 Blood Culture - Preliminary Blood No Growth after 24 hours
[2020-12-31] MEDS: APIXABAN 5 MG TAB PO SCH ×2 (12:25→20:41)
[2020-12-31 16:57] LABS: Glucose,Whole Blood 232 mg/dL (75-99)
--- NOTE | 2020-12-31 19:51 | PN ---
PROGRESS NOTE DATE OF SERVICE: 12/31/2020 This 65-year-old woman admitted with acute bronchial asthma, acute exacerbation, also had acute bilateral pulmonary embolism. Patient is on Eliquis. No chest pain. No palpitations. No fever. PHYSICAL EXAMINATION: Alert and oriented x3. The pulse is 90, blood pressure 148/101, respiration 18, temperature 97.2, pulse ox 94% on room air. HEENT: Conjunctivae normal. NECK: No jugular venous distention. CARDIOVASCULAR: S1, S2 muffled. RESPIRATION: Breath sounds diminished at the bases. A few scattered rhonchi and crackles. ABDOMEN: Soft, nontender. NERVOUS SYSTEM: No focal deficit. LABS: WBC , hemoglobin 11.5, sodium 130, potassium 10.4. ASSESSMENT: 1. Acute bronchial asthma, acute exacerbation, with acute purulent tracheobronchitis. 2. Acute bilateral pulmonary embolism. 3. History of atrial fibrillation with a fast ventricular rate. 4. History of elevated D-dimer. 5. History of rheumatoid arthritis. 6. History of cholecystectomy. 7. History of hysterectomy. 8. History of depression. 9. Remote history of nicotine dependence. 10.Obesity with body mass index of 39.6. 11.FULL CODE. RECOMMENDATIONS AND DISCUSSION: I recommend to continue current medications, continue with symptomatic treatment. Continue with the bronchodilators. Continue the rest of the medications. Eliquis. Guarded prognosis because of multiple complex medical issues. Further recommendations to follow. MMODL / IJN: [id number] /
[2020-12-31 20:36] LABS: Glucose,Whole Blood 226 mg/dL (75-99)
[2021-01-01 05:42] LABS: Glucose,Whole Blood 212 mg/dL (75-99)
[2021-01-01] MEDS: INSULIN ASPART (NovoLOG) 100 UNIT/ML VIAL SQ SCH ×4 (06:07→20:17)
[2021-01-01] MEDS: FORMOTEROL FUMARATE 20 MCG/2 ML NEBU INHALATION SCH ×2 (07:04→20:39)
[2021-01-01] MEDS: BUDESONIDE 1 MG/2 ML NEBU INHALATION SCH ×2 (07:04→20:39)
[2021-01-01] MEDS: IPRATROPIUM-ALBUTEROL 3 ML NEB INHALATION SCH ×4 (07:04→20:39)
[2021-01-01] MEDS: MONTELUKAST 10 MG TAB PO SCH (07:41)
[2021-01-01] MEDS: TORSEMIDE 20 MG TAB PO SCH (07:41)
[2021-01-01] MEDS: LOSARTAN 25 MG TAB PO SCH (07:41)
[2021-01-01] MEDS: METOPROLOL TARTRATE 50 MG TAB PO SCH ×2 (07:41→20:18)
[2021-01-01] MEDS: FOLIC ACID 1 MG TAB PO SCH (07:41)
[2021-01-01] MEDS: POTASSIUM CHLORIDE ER 10 MEQ TAB.ER.PRT PO SCH (07:41)
[2021-01-01] MEDS: FAMOTIDINE 20 MG TAB PO SCH ×2 (07:41→20:18)
[2021-01-01] MEDS: PANTOPRAZOLE 40 MG TABLET PO SCH (07:41)
[2021-01-01] MEDS: APIXABAN 5 MG TAB PO SCH ×2 (07:41→20:18)
[2021-01-01] MEDS: valACYclovir HCL 1,000 MG TABLET PO SCH (07:41)
[2021-01-01] MEDS: buPROPion XL 300 MG TAB.ER.24H PO SCH (07:41)
[2021-01-01] MEDS: DILTIAZEM CD 180 MG CAP.ER.24H PO SCH (07:42)
[2021-01-01] MEDS: methylPREDNISolone SOD SUCCI 40 MG/ML 1 ML VIAL IV SCH (07:42)
[2021-01-01] MEDS ORDERED: METOPROLOL TARTRATE 25 MG TAB PO STA (09:57)
[2021-01-01 11:46] LABS: Glucose,Whole Blood 346 mg/dL (75-99)
--- NOTE | 2021-01-01 11:54 | P.PN ---
Subjective This is a pleasant 65-year-old female past medical history significant for hypertension, Asthma, atrial fibrillation, rheumatoid arthritis, former tobacco use. She follows with Dr. Dia. We have been asked to see in consultation for atrial fibrillation with rapid ventricular response. Patient transferred from [place]. She presented to the hospital initially for increasing shortness of breath and cough. She was found to be in atrial fibrillation with rapid ventricular rate. Patient also found to have right segmental branch pulmonary embolism with CTA was performed at [facility] per report. She was started on IV heparin as well as Cardizem and transferred to [facility] for further treatment. Patient seen and examined at bedside, she continues to have some shortness of breath. She denies any chest pain, palpitations, syncope or presyncope, denies any symptoms of orthopnea PND. She denies any cough, fever, chills. She denies current tobacco use, denies daily alcohol use. She denies history of CAD, Diabetes, heart failure, [place], or STroke. DIAGNOSTICS EKG reveals atrial fibrillation heart rate 95 Current home medications include Valtrex, Wellbutrin, Torsemide 20mg daily, Protonix, Singulair, Methotrexate, Losartan 25mg daily, Flovent, Albuterol Echocardiogram revealed EF 55-60%, mild mitral regurgitation, mild tricuspid regurgitation, mild pulmonary hypertension with RVSP of 37 mmHg 01/01/21 Patient seen and examined at bedside, She has no chest pain. Does have some shortness of breath. Telemetry tracings indicate atrial fibrillation, heart rate uncontrolled trends 90s-115. Blood pressure 151/105, heart rate 96, afebrile, saturations greater than 92% on room air. She is currently maintained on Eliquis 10 mg twice a day, metoprolol tartrate 50 mg twice a day, Cardizem 180 mg daily PHYSICAL EXAMINATION CONSTITUTIONAL: No apparent distress. HEENT: Neck Supple. No JVD CHEST EXAMINATION: Lungs bilateral wheezing to auscultation. HEART EXAMINATION: Irregular rate and rhythm. S1, S2 heard. No murmurs, gallops or rub. ABDOMEN: Soft, nontender. Positive bowel sounds. EXTREMITIES: 2+ peripheral pulses, no lower extremity edema and no calf tenderness. SKIN: warm, dry NEUROLOGIC EXAMINATION: Patient is awake, alert and oriented x3. ASSESSMENT Acute Pulmonary Embolism Paroxysmal Atrial fibrillation with rapid ventricular response -[id number] score 2 History of hypertension Asthma Rheumatoid Arthritis Former smoker PLAN Continue Cardizem 180mg Daily Increase metoprolol tartrate 75mg BID Continue Anticoagulation with Eliquis Per case management patient has Medicaid Eliquis will be covered for the patient Continue Losartan From a cardiology perspective, patient is stable, ok to discharge if cleared by medicine and other consultants Patient follows with Dr. Dia and has an appt on 01/07/21 at 3:00pm Nurse Practitioner note has been reviewed, I agree with a documented findings and plan of care. Patient was seen and examined. Objective - Vital Signs Vital signs: Vital Signs Temp 97.2 F L 01/01/21 07:25 Pulse 94 01/01/21 10:56 Resp 18 01/01/21 07:25 BP 151/105 01/01/21 07:25 Pulse Ox 92 L 01/01/21 07:25 Intake & Output 12/31/20 01/01/21 01/01/21 18:59 06:59 18:59 Intake Total 1021.917 20 10 Balance 1021.917 20 10 Weight 114.7 kg Intake: IV 30 20 10 Invasive Line 1 30 20 10 Intake, IV Titration 231.917 Amount Diltiazem 125 mg In 125 Sodium Chloride 0.9% 100 ml @ 5 MG/HR 5 mls/hr IV .Q24H [facility] Rx#:[id number] Diltiazem 125 mg In 106.917 Sodium Chloride 0.9% 100 ml @ 5 MG/HR 5 mls/hr IV .Q24H [facility] Rx#:[id number] Oral 760 Other: Voiding Method Toilet # Voids 4 4 - Labs CBC & Chem 7: 12/31/20 06:41 12/31/20 06:41 Labs: Abnormal Lab Results - Last 24 Hours (Table) 12/31/20 12/31/20 12/31/20 Range/Units 11:47 16:40 20:33 POC Glucose (mg/dL) 169 H 232 H 226 H (75-99) mg/dL 01/01/21 01/01/21 Range/Units 05:32 11:42 POC Glucose (mg/dL) 212 H 346 H (75-99) mg/dL Microbiology - Last 24 Hours (Table) 12/29/20 18:31 Blood Culture - Preliminary Blood No Growth after 48 hours
[2021-01-01] MEDS ORDERED: INSULIN ASPART (NovoLOG) 100 UNIT/ML VIAL SQ ONE (12:21)
[2021-01-01] MEDS ORDERED: INSULIN DETEMIR (LEVEMIR) 100 UNIT/ML SYR SQ ONE (13:00)
--- NOTE | 2021-01-01 13:31 | P.PN ---
Subjective Progress Note Date: 12/31/20 Principal diagnosis: Acute pulmonary embolism Acute hypoxic respiratory failure Atrial fibrillation with rapid ventricular response likely due to pulmonary embolism Mild pulmonary hypertension COPD Purulent tracheobronchitis Severe morbid obesity History of asthma Rheumatoid arthritis History of smoking cigarettes in the past 12/31/2020, patient seen eval reexamined during the rounds labs reviewed medications reviewed care plan discussed, trace status remains stable, FiO2 requirement however is coming down, less short of breath and congested after starting IV steroids but however sugars are trending up words, patient is now off of IV heparin on direct oral anticoagulant Patient is a pleasant 65-year-old female patient was initially seen at [facility] for progressive shortness of breath of several day duration, she has a prior history of asthma and asthmatic bronchitis has been getting therapy for acute exacerbation of asthma with Medrol Dosepak, patient did not respond very well with the Dosepak decided to come into the hospital, patient was found to be in A. fib with rapid ventricular response, CTA was positive for pulmonary embolism patient was started on Cardizem as well as heparin transferred over here for further evaluation and intervention and therapy, the specific questioning she denies any loss of consciousness, does have ongoing cough shortness of breath, cough is nonproductive, denies any chest pain, denies any bowel or bladder related problem, her x-ray in the hospital prominent markings have been seen, echocardiogram significant for atrial fibrillation ejection fraction normal 60%, mild degree of pulmonary hypertension noted, duplex ultrasound lower extremity negative for DVT bilaterally, patient currently is being treated with bronchodilator and continuation of home respirator therapy, IV Rocephin, Cardizem is being switched to oral from IV, heparin drip as per protocol along with continuation of home medication, patient noted to be very short of breath on minimal activity and exertion coming back from washroom has been huffing and puffing Objective - Vital Signs Vital signs: Vital Signs Temp 97.2 F L 12/31/20 11:22 Pulse 90 12/31/20 12:12 Resp 18 12/31/20 11:22 BP 148/101 12/31/20 11:22 Pulse Ox 95 12/31/20 11:22 Intake & Output 12/30/20 12/31/20 12/31/20 18:59 06:59 18:59 Intake Total 249.693 751.917 Balance 249.693 751.917 Weight 117.7 kg Intake: IV 20 Invasive Line 1 20 Intake, IV Titration 249.693 231.917 Amount Diltiazem 125 mg In 125 Sodium Chloride 0.9% 100 ml @ 5 MG/HR 5 mls/hr IV .Q24H [facility] Rx#:[id number] Diltiazem 125 mg In 106.917 Sodium Chloride 0.9% 100 ml @ 5 MG/HR 5 mls/hr IV .Q24H [facility] Rx#:[id number] Heparin Sod,Pork in 0.45% 249.693 NaCl 25,000 unit In 0.45 % NaCl 1 250ml.bag @ 18 UNITS/KG/HR 20.412 mls/hr IV .[id number] [facility] Rx#: [id number] Oral 500 Other: Voiding Method Toilet Toilet # Voids 2 2 - Exam - Constitutional General appearance: disheveled, mild distress, morbidly obese - EENT Eyes: EOMI, PERRLA ENT: normal oropharynx Ears: bilateral: normal - Neck Neck: normal ROM Carotids: bilateral: upstroke normal Thyroid: bilateral: normal size - Respiratory Respiratory: bilateral: diminished, prolonged expiration - Cardiovascular Heart sounds: normal: S1, S2 - Gastrointestinal General gastrointestinal: distended, normal bowel sounds, soft - Integumentary Integumentary: normal turgor - Neurologic Neurologic: CNII-XII intact - Musculoskeletal Musculoskeletal: gait normal, generalized weakness, strength equal bilaterally - Psychiatric Psychiatric: A&O x's 3, appropriate affect, intact judgment & insight - Labs CBC & Chem 7: 12/31/20 06:41 12/31/20 06:41 Labs: Abnormal Lab Results - Last 24 Hours (Table) 12/31/20 12/31/20 12/31/20 Range/Units 05:48 06:41 06:41 RBC 3.63 L (3.80-5.40) m/uL MCV 100.9 H (80.0-100.0) fL RDW 16.6 H (11.5-15.5) % Neutrophils # 9.9 H (1.3-7.7) k/uL Lymphocytes # 0.4 L (1.0-4.8) k/uL APTT (22.0-30.0) sec BUN 19 H (7-17) mg/dL Glucose 219 H (74-99) mg/dL POC Glucose (mg/dL) 202 H (75-99) mg/dL 12/31/20 12/31/20 Range/Units 06:41 11:47 RBC (3.80-5.40) m/uL MCV (80.0-100.0) fL RDW (11.5-15.5) % Neutrophils # (1.3-7.7) k/uL Lymphocytes # (1.0-4.8) k/uL APTT 67.4 H (22.0-30.0) sec BUN (7-17) mg/dL Glucose (74-99) mg/dL POC Glucose (mg/dL) 169 H (75-99) mg/dL Microbiology - Last 24 Hours (Table) 12/29/20 18:31 Blood Culture - Preliminary Blood No Growth after 24 hours Assessment and Plan Assessment: Acute pulmonary embolism Acute hypoxic respiratory failure Atrial fibrillation with rapid ventricular response likely due to pulmonary embolism Mild pulmonary hypertension COPD Purulent tracheobronchitis Severe morbid obesity History of asthma Rheumatoid arthritis History of smoking cigarettes in the past Plan: Continue direct oral anticoagulant monitor off of IV heparin Continue antibiotics Continue breathing treatment Continue short course of IV steroids clinically improving Further plan of care as per clinical response of the patient Time with Patient: Greater than 30
--- NOTE | 2021-01-01 13:34 | P.PN ---
Subjective Progress Note Date: 01/01/21 Principal diagnosis: Acute pulmonary embolism Acute hypoxic respiratory failure Atrial fibrillation with rapid ventricular response likely due to pulmonary embolism Mild pulmonary hypertension COPD Purulent tracheobronchitis Severe morbid obesity History of asthma Rheumatoid arthritis History of smoking cigarettes in the past 01/01/2021, patient seen eval examined during the rounds labs reviewed medications reviewed care plan discussed, respiratory status remains stable, patient is off of supplemental oxygen room air now, wheezing cough congestion significantly improve, however sugars are running high, oxygen saturation 93%, we'll recommend to DC IV steroids 12/31/2020, patient seen eval reexamined during the rounds labs reviewed medications reviewed care plan discussed, trace status remains stable, FiO2 requirement however is coming down, less short of breath and congested after starting IV steroids but however sugars are trending up words, patient is now off of IV heparin on direct oral anticoagulant Patient is a pleasant 65-year-old female patient was initially seen at [facility] for progressive shortness of breath of several day duration, she has a prior history of asthma and asthmatic bronchitis has been getting therapy for acute exacerbation of asthma with Medrol Dosepak, patient did not respond very well with the Dosepak decided to come into the hospital, patient was found to be in A. fib with rapid ventricular response, CTA was positive for pulmonary embolism patient was started on Cardizem as well as heparin transferred over here for further evaluation and intervention and therapy, the specific questioning she denies any loss of consciousness, does have ongoing cough shortness of breath, cough is nonproductive, denies any chest pain, denies any bowel or bladder related problem, her x-ray in the hospital prominent markings have been seen, echocardiogram significant for atrial fibrillation ejection fraction normal 60%, mild degree of pulmonary hypertension noted, duplex ultrasound lower extremity negative for DVT bilaterally, patient currently is being treated with bronchodilator and continuation of home respirator therapy, IV Rocephin, Cardizem is being switched to oral from IV, heparin drip as per protocol along with continuation of home medication, patient noted to be very short of breath on minimal activity and exertion coming back from washroom has been huffing and puffing Objective - Vital Signs Vital signs: Vital Signs Temp 97.6 F 01/01/21 12:29 Pulse 98 01/01/21 12:29 Resp 18 01/01/21 12:29 BP 145/106 01/01/21 12:29 Pulse Ox 93 L 01/01/21 12:29 Intake & Output 12/31/20 01/01/21 01/01/21 18:59 06:59 18:59 Intake Total 1021.917 20 10 Balance 1021.917 20 10 Weight 114.7 kg Intake: IV 30 20 10 Invasive Line 1 30 20 10 Intake, IV Titration 231.917 Amount Diltiazem 125 mg In 125 Sodium Chloride 0.9% 100 ml @ 5 MG/HR 5 mls/hr IV .Q24H [facility] Rx#:[id number] Diltiazem 125 mg In 106.917 Sodium Chloride 0.9% 100 ml @ 5 MG/HR 5 mls/hr IV .Q24H [facility] Rx#:[id number] Oral 760 Other: Voiding Method Toilet # Voids 4 4 1 - Exam - Constitutional General appearance: disheveled, mild distress, morbidly obese - EENT Eyes: EOMI, PERRLA ENT: normal oropharynx Ears: bilateral: normal - Neck Neck: normal ROM Carotids: bilateral: upstroke normal Thyroid: bilateral: normal size - Respiratory Respiratory: bilateral clear to auscultation - Cardiovascular Heart sounds: normal: S1, S2 - Gastrointestinal General gastrointestinal: distended, normal bowel sounds, soft - Integumentary Integumentary: normal turgor - Neurologic Neurologic: CNII-XII intact - Musculoskeletal Musculoskeletal: gait normal, generalized weakness, strength equal bilaterally - Psychiatric Psychiatric: A&O x's 3, appropriate affect, intact judgment & insight - Labs CBC & Chem 7: 12/31/20 06:41 12/31/20 06:41 Labs: Abnormal Lab Results - Last 24 Hours (Table) 12/31/20 12/31/20 01/01/21 Range/Units 16:40 20:33 05:32 POC Glucose (mg/dL) 232 H 226 H 212 H (75-99) mg/dL 01/01/21 Range/Units 11:42 POC Glucose (mg/dL) 346 H (75-99) mg/dL Microbiology - Last 24 Hours (Table) 12/29/20 18:31 Blood Culture - Preliminary Blood No Growth after 48 hours Assessment and Plan Assessment: Acute asthma improved with IV steroids and bronchodilator Acute pulmonary embolism Acute hypoxic respiratory failure Atrial fibrillation with rapid ventricular response likely due to pulmonary embolism Mild pulmonary hypertension COPD Purulent tracheobronchitis Severe morbid obesity History of asthma Rheumatoid arthritis History of smoking cigarettes in the past Plan: Continue direct oral anticoagulant monitor off of IV heparin Continue antibiotics can be switched to oral at the time of discharge Continue breathing treatment Continue short course of IV steroids however it can be stopped patient can be discharged home on tapering Medrol Dosepak Further plan of care as per clinical response of the patient Time with Patient: Greater than 30
[2021-01-01 14:08] LABS: Glucose,Whole Blood 184 mg/dL (75-99)
[2021-01-01 16:35] LABS: Glucose,Whole Blood 107 mg/dL (75-99)
[2021-01-01] MEDS: metFORMIN 500 MG TAB PO SCH (18:28)
[2021-01-01 20:02] LABS: Glucose,Whole Blood 229 mg/dL (75-99)
[2021-01-01] MEDS ORDERED: INSULIN DETEMIR (LEVEMIR) 100 UNIT/ML SYR SQ SCH ×2 (21:00)
--- NOTE | 2021-01-01 21:38 | PN ---
PROGRESS NOTE DATE OF SERVICE: 01/01/2021. This 65-year-old woman who was admitted with acute bronchial asthma, acute exacerbation, also had acute bilateral pulmonary embolism. No chest pain. No palpitations. No fever. The blood sugar is elevated more than 300. PHYSICAL EXAMINATION: Alert and oriented times three. Pulse is 88, blood pressure 130/60. Respiration 18. Temperature 97.2, pulse ox 93% on room air. HEENT: Conjunctivae normal. Neck: No JVD. Cardiovascular: S1, S2 muffled. Respiratory: Breath sounds diminished in the bases. A few scattered rhonchi. Abdomen: Soft. Nervous system: No focal deficits. LABS: At this time shows: Glucose 107. Other labs are noted. ASSESSMENT: 1. Acute bronchial asthma, acute exacerbation, acute purulent tracheobronchitis. 2. Acute bilateral pulmonary embolism. 3. History of atrial fibrillation with fast ventricular rate. 4. Elevated D-dimer. 5. History of rheumatoid arthritis. 6. History of cholecystectomy. 7. 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 8. History of hysterectomy. 9. History of depression. 10.Remote history of nicotine dependence. 11.Obesity with body mass of 39.7. 12.FULL CODE. RECOMMENDATIONS AND DISCUSSION: Recommend to continue current medications, management and symptomatic treatment. Taper the steroids and also recommend reduce the dose of Lantus. Initiate metformin and continue to monitor. Prognosis guarded. MMODL / IJN: [id number] /
[2021-01-02] MEDS: INSULIN ASPART (NovoLOG) 100 UNIT/ML VIAL SQ SCH ×2 (06:21→11:51)
[2021-01-02 06:22] LABS: Glucose,Whole Blood 116 mg/dL (75-99)
[2021-01-02] MEDS: metFORMIN 500 MG TAB PO SCH (06:23)
[2021-01-02] MEDS: valACYclovir HCL 1,000 MG TABLET PO SCH (08:29)
[2021-01-02] MEDS: APIXABAN 5 MG TAB PO SCH (08:29)
[2021-01-02] MEDS: POTASSIUM CHLORIDE ER 10 MEQ TAB.ER.PRT PO SCH (08:29)
[2021-01-02] MEDS: FOLIC ACID 1 MG TAB PO SCH (08:29)
[2021-01-02] MEDS: DILTIAZEM CD 180 MG CAP.ER.24H PO SCH (08:30)
[2021-01-02] MEDS: MONTELUKAST 10 MG TAB PO SCH (08:30)
[2021-01-02] MEDS: LOSARTAN 25 MG TAB PO SCH (08:30)
[2021-01-02] MEDS: FAMOTIDINE 20 MG TAB PO SCH (08:30)
[2021-01-02] MEDS: PANTOPRAZOLE 40 MG TABLET PO SCH (08:30)
[2021-01-02] MEDS: METOPROLOL TARTRATE 50 MG TAB PO SCH (08:30)
[2021-01-02] MEDS: buPROPion XL 300 MG TAB.ER.24H PO SCH (08:30)
[2021-01-02] MEDS: TORSEMIDE 20 MG TAB PO SCH (08:30)
[2021-01-02] MEDS: BUDESONIDE 1 MG/2 ML NEBU INHALATION SCH (08:52)
[2021-01-02] MEDS: IPRATROPIUM-ALBUTEROL 3 ML NEB INHALATION SCH ×2 (08:52→12:42)
[2021-01-02] MEDS: FORMOTEROL FUMARATE 20 MCG/2 ML NEBU INHALATION SCH (08:52)
[2021-01-02] MEDS ORDERED: predniSONE 20 MG TAB PO SCH (09:00)
[2021-01-02 09:20] VITALS: RESP 18; TEMP 98.2
[2021-01-02] MEDS ORDERED: METOPROLOL TARTRATE 25 MG TAB PO STA (10:05)
--- NOTE | 2021-01-02 10:06 | P.PN ---
Subjective Progress Note Date: 01/02/21 Principal diagnosis: Acute pulmonary embolism Acute hypoxic respiratory failure Atrial fibrillation with rapid ventricular response likely due to pulmonary embolism Mild pulmonary hypertension COPD Purulent tracheobronchitis Severe morbid obesity History of asthma Rheumatoid arthritis History of smoking cigarettes in the past January 02 2021, patient seen eval examined during the rounds labs reviewed medications reviewed care plan discussed, respiratory status stable, off of supplemental oxygen, now patient is on oral prednisone, sugars are stable, recommend to taper and DC next few days 01/01/2021, patient seen eval examined during the rounds labs reviewed med ications reviewed care plan discussed, respiratory status remains stable, patient is off of supplemental oxygen room air now, wheezing cough congestion significantly improve, however sugars are running high, oxygen saturation 93%, we'll recommend to DC IV steroids 12/31/2020, patient seen eval reexamined during the rounds labs reviewed medications reviewed care plan discussed, trace status remains stable, FiO2 requirement however is coming down, less short of breath and congested after starting IV steroids but however sugars are trending up words, patient is now off of IV heparin on direct oral anticoagulant Patient is a pleasant 65-year-old female patient was initially seen at [facility] for progressive shortness of breath of several day duration, she has a prior history of asthma and asthmatic bronchitis has been getting therapy for acute exacerbation of asthma with Medrol Dosepak, patient did not respond very well with the Dosepak decided to come into the hospital, patient was found to be in A. fib with rapid ventricular response, CTA was positive for pulmonary embolism patient was started on Cardizem as well as heparin transferred over here for further evaluation and intervention and therapy, the specific questioning she denies any loss of consciousness, does have ongoing cough shortness of breath, cough is nonproductive, denies any chest pain, denies any bowel or bladder related problem, her x-ray in the hospital prominent markings have been seen, echocardiogram significant for atrial fibrillation ejection fraction normal 60%, mild degree of pulmonary hypertension noted, duplex ultrasound lower extremity negative for DVT bilaterally, patient currently is being treated with bronchodilator and continuation of home respirator therapy, IV Rocephin, Cardizem is being switched to oral from IV, heparin drip as per protocol along with continuation of home medication, patient noted to be very short of breath on minimal activity and exertion coming back from washroom has been huffing and puffing Objective - Vital Signs Vital signs: Vital Signs Temp 98.2 F 01/02/21 08:00 Pulse 80 01/02/21 09:14 Resp 18 01/02/21 08:00 BP 157/79 01/02/21 08:00 Pulse Ox 93 L 01/02/21 08:00 Intake & Output 01/01/21 01/02/21 01/02/21 18:59 06:59 18:59 Intake Total 770 240 Balance 770 240 Weight 113 kg Intake: IV 30 Invasive Line 1 30 Oral 740 240 Other: Voiding Method Toilet # Voids 1 3 - Exam - Constitutional General appearance: disheveled, mild distress, morbidly obese - EENT Eyes: EOMI, PERRLA ENT: normal oropharynx Ears: bilateral: normal - Neck Neck: normal ROM Carotids: bilateral: upstroke normal Thyroid: bilateral: normal size - Respiratory Respiratory: bilateral clear to auscultation - Cardiovascular Heart sounds: normal: S1, S2 - Gastrointestinal General gastrointestinal: distended, normal bowel sounds, soft - Integumentary Integumentary: normal turgor - Neurologic Neurologic: CNII-XII intact - Musculoskeletal Musculoskeletal: gait normal, generalized weakness, strength equal bilaterally - Psychiatric Psychiatric: A&O x's 3, appropriate affect, intact judgment & insight - Labs CBC & Chem 7: 12/31/20 06:41 12/31/20 06:41 Labs: Abnormal Lab Results - Last 24 Hours (Table) 01/01/21 01/01/21 01/01/21 Range/Units 11:42 14:06 16:29 POC Glucose (mg/dL) 346 H 184 H 107 H (75-99) mg/dL 01/01/21 01/02/21 Range/Units 20:01 06:20 POC Glucose (mg/dL) 229 H 116 H (75-99) mg/dL Microbiology - Last 24 Hours (Table) 12/29/20 18:31 Blood Culture - Preliminary Blood No Growth after 72 hours Assessment and Plan Assessment: Acute asthma improved with IV steroids and bronchodilator Acute pulmonary embolism Acute hypoxic respiratory failure Atrial fibrillation with rapid ventricular response likely due to pulmonary embolism Mild pulmonary hypertension COPD Purulent tracheobronchitis on IV Rocephin Severe morbid obesity History of asthma Rheumatoid arthritis History of smoking cigarettes in the past Plan: Continue direct oral anticoagulant monitor off of IV heparin Continue antibiotics can be switched to oral at the time of discharge Continue breathing treatment Continue oral prednisone however recommend to quickly taper and DC 8 has asthma symptoms improve significantly Further plan of care as per clinical response of the patient Time with Patient: Greater than 30
[2021-01-02 11:40] LABS: Glucose,Whole Blood 124 mg/dL (75-99)
--- NOTE | 2021-01-02 12:00 | P.PN ---
Subjective Progress Note Date: 01/02/21 Principal diagnosis: Pulmonary embolism This is Live greenberg NP, dictating a progress note on behalf of Dr. Craft. Patient was interviewed and examined. Patient is a pleasant 65-year-old female who initially presented to the hospital with shortness of breath and was subsequently found to have pulmonary embolus. Patient is doing well at this time, reporting that she feels really good and is wanting to go home. Patient still has some scattered and air entry rhonchi on e xamination. Telemetry was reviewed, patient is still in A. fib however she is rate controlled at this time. Heart rate is still running in the 90s, we will increase her metoprolol to 100 mg twice a day. From a cardiology standpoint the patient can be discharged today, and scheduled for follow-up as an outpatient. GENERAL: Well-appearing, well-nourished and in no acute distress. NECK: Supple without JVD or thyromegaly. LUNGS: Scattered mild air entry and lobular rhonchi on auscultation bilaterally. Respiration equal and unlabored. HEART: Regular rate, irregular rhythm without murmurs, rubs or gallops. S1 and S2 heard. EXTREMITIES: Normal range of motion, no edema. No clubbing or cyanosis. Peripheral pulses intact and strong. VITALS: [Temp 98.2, pulse 93, respirations 18, blood pressure 157/79, O2 saturation 93% on room air] TELEMETRY: [Rate controlled atrial fibrillation] LABS: [White count 10.6, hemoglobin 11.5, platelets 171, APTT 67.4, sodium 138, potassium 4.0, B1 19, creatinine 0.95, calcium 8.5] IMPRESSION/PLAN: [1. Atrial fibrillation with rapid ventricular response-patient is currently rate controlled on metoprolol. However she continues to have a slightly el evated rate. We will increase her metoprolol to 100 mg twice a day.] From a cardiology standpoint the patient may be discharged at this time. If the patient is not discharged in the patient's status changes for any reason please contact us. Objective - Vital Signs Vital signs: Vital Signs Temp 98.2 F 01/02/21 08:00 Pulse 80 01/02/21 09:14 Resp 18 01/02/21 08:00 BP 157/79 01/02/21 08:00 Pulse Ox 93 L 01/02/21 08:00 Intake & Output 01/01/21 01/02/21 01/02/21 18:59 06:59 18:59 Intake Total 770 240 Balance 770 240 Weight 113 kg Intake: IV 30 Invasive Line 1 30 Oral 740 240 Other: Voiding Method Toilet # Voids 1 3 - Labs CBC & Chem 7: 12/31/20 06:41 12/31/20 06:41 Labs: Abnormal Lab Results - Last 24 Hours (Table) 01/01/21 01/01/21 01/01/21 Range/Units 14:06 16:29 20:01 POC Glucose (mg/dL) 184 H 107 H 229 H (75-99) mg/dL 01/02/21 01/02/21 Range/Units 06:20 11:38 POC Glucose (mg/dL) 116 H 124 H (75-99) mg/dL Microbiology - Last 24 Hours (Table) 12/29/20 18:31 Blood Culture - Preliminary Blood No Growth after 72 hours
[2021-01-02 12:08] VITALS: BP 147/106
[2021-01-02 12:45] VITALS: PULSE 76
--- NOTE | 2021-01-02 20:09 | DS ---
DISCHARGE SUMMARY DATE OF SERVICE: 01/02/2021 FINAL DIAGNOSES: 1. Acute bronchial asthma, acute exacerbation, with acute purulent tracheobronchitis. 2. Acute bilateral pulmonary embolism. 3. History of atrial fibrillation with fast ventricular rate. 4. Elevated D-dimer. 5. History of rheumatoid arthritis. 6. History of cholecystectomy. 7. 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 8. History of hysterectomy. 9. History of depression. 10.Remote history of nicotine dependence. 11.Obesity with body mass index of 39.7. 12.FULL CODE. DISCHARGE DISPOSITION: The patient will be discharged in stable condition with guarded prognosis. Total time taken 35 minutes. HISTORY OF PRESENT ILLNESS: This 65-year-old woman with a past medical history of multiple medical problems was admitted with acute bronchial asthma, acute exacerbation, as well as acute bilateral pulmonary embolism. Patient was seen in conjunction with Pulmonary. The patient was started on IV heparin and then switched over to Eliquis. The patient also had elevated blood sugars. diabetes mellitus was considered and the patient was given Lantus and NovoLog, which improved. I will start the patient on metformin at home and she will monitor Accu-Cheks closely and follow with primary physician in the outpatient setting. The patient improved significantly and the patient will be discharged in stable condition with guarded prognosis. DISCHARGE ADVICE AND MEDICATIONS: 1. Diet is cardiac. 2. Activity limited until followup. 3. Follow up with primary physician, Dr. Madi Saenz and Dr. Mccrary. 4. Follow up with Dr. Best as recommended. 5. Cozaar 25 mg p.o. daily. 6. Demadex 20 mg p.o. daily. 7. Flovent 2 puffs p.o. daily. 8. Folic acid 1 mg daily. 9. Potassium 99 meq p.o. daily. 10.Protonix 20 mg p.o. daily. 11.Methotrexate 25 mg subcutaneously Wednesday. 12.Renoq 15 mg at bedtime. 13.Singulair 10 mg daily. 14.Valtrex 1000 mg daily. 15.Ventolin p.r.n. 16.Wellbutrin XL 300 mg daily. 17.Cardizem CD 180 mg p.o. daily. 18.Albuterol q.i.d. and p.r.n. 19.Eliquis 10 mg p.o. b.i.d. for 7 days and then 5 mg b.i.d. 20.Lopressor 100 mg b.i.d. 21.Prednisone 40 mg daily for 3 days, 30 mg daily for 3 days, 20 mg daily for 3 days, 10 mg daily for 3 days. 22.Symbicort 1 puff b.i.d. Please discontinue the Motrin. As mentioned earlier, monitor blood sugars closely. Once again, the patient will be discharged in stable condition with guarded prognosis. MMELIEZER / FERMÍNN: [id number] / MTDD
[2021-01-02] MEDS ORDERED: METOPROLOL TARTRATE 50 MG TAB PO SCH (21:00)
== END 2021-01-02 16:07 | disposition home or self-care (01) | DRG 175 ==
LOC: EC 04:25 → 3SCARD 05:51
PROVIDERS: ADMIT Internal Medicine; ATTEND Internal Medicine
DX: I26.93 Single subsegmental thrombotic pulmonary embolism without acute cor pulmonale (principal); J96.01 Acute respiratory failure with hypoxia; J44.1 Chronic obstructive pulmonary disease with (acute) exacerbation; L03.90 Cellulitis, unspecified; J44.0 Chronic obstructive pulmonary disease with (acute) lower respiratory infection; E66.01 Morbid (severe) obesity due to excess calories; Z68.39 Body mass index [BMI] 39.0-39.9, adult; I10 Essential (primary) hypertension; I27.20 Pulmonary hypertension, unspecified; I48.0 Paroxysmal atrial fibrillation; M06.9 Rheumatoid arthritis, unspecified; Z20.822 Contact with and (suspected) exposure to COVID-19; Z79.01 Long term (current) use of anticoagulants; Z79.51 Long term (current) use of inhaled steroids; Z79.899 Other long term (current) drug therapy; Z87.891 Personal history of nicotine dependence; Z90.49 Acquired absence of other specified parts of digestive tract; Z90.710 Acquired absence of both cervix and uterus; J20.9 Acute bronchitis, unspecified; E09.9 Drug or chemical induced diabetes mellitus without complications; T38.0X5A Adverse effect of glucocorticoids and synthetic analogues, initial encounter; F32.A Depression, unspecified
CPT/HCPCS: 71045; 80048; 82728; 83615; 84443; 84484; 85025; 85379; 85652; 85730; 86140; 87040; 93005; 93306; 93970; 94640; 94760; 96365; 96366; 96368; 99285